=== PATIENT | female | born 1930 ===

== ENCOUNTER 2017-12-10 23:27 | Emergency (ER) | payer OTHER ==
[2017-12-10 23:53] VITALS: RESP 18; TEMP 98.3; O2SAT 98
[2017-12-10] MEDS ORDERED: DiphenhydrAMINE 50 mg/ml Inj IVP STA (23:59)
--- NOTE | 2017-12-11 00:01 | ED PDOC ---
HPI: Allergic Reaction Time Seen by Provider: 12/10/17 23:49 Chief Complaint (Nursing): Allergic Reaction History Per: Patient, Family (Yohan (great grand daughter)) Additional Complaint(s): As per her great granddaughter pt. has been having a constant worsening rash throughout her entire body and face. As per family she is currently visiting from [place] and has been here for 2 months. Denies fever, chest pain, SOB, palpitations, headache, visual changes. Of note, pt. does have a hx of HTN and takes irbesartan/HCTZ in the AM. Past Medical History Reviewed: Historical Data, Nursing Documentation, Vital Signs Vital Signs: Last Vital Signs Temp 98.3 F 12/10/17 23:49 Pulse 92 H 12/10/17 23:49 Resp 18 12/10/17 23:49 BP 225/78 H 12/10/17 23:49 Pulse Ox 98 12/10/17 23:49 - Medical History PMH: HTN Denies: Chronic Kidney Disease - Family History Family History: States: No Known Family Hx - Home Medications Home Medications: Ambulatory Orders Medication Instructions Recorded DiphenhydrAMINE [Benadryl] 1 - 2 cap PO Q6 PRN #30 cap 12/11/17 Methylprednisolone [Medrol Dose 4 mg PO DAILY #21 mg 12/11/17 Pack (21 tabs)] - Allergies Allergies/Adverse Reactions: Allergies Allergy/AdvReac Type Severity Reaction Status Date / Time No Known Allergies Allergy Verified 12/10/17 23:59 Review of Systems ROS Statement: Except As Marked, All Systems Reviewed And Found Negative Skin: Positive for: Rash Physical Exam - Physical Exam Appears: Positive for: Well, Non-toxic, No Acute Distress Skin: Positive for: Normal Color, Warm, Rash (scattered erythematous patches without vesicles, central clearing, or sclaing on b/l malar area, b/l arms, and upper chest) ENT: Positive for: Normal ENT Inspection Neck: Positive for: Normal, Painless ROM Cardiovascular/Chest: Positive for: Regular Rate, Rhythm Respiratory: Positive for: CNT, Normal Breath Sounds Neurologic/Psych: Positive for: Alert, Oriented. Negative for: Aphasia, Facial Droop - Laboratory Results Result Diagrams: 12/11/17 00:42 12/11/17 00:42 - ECG ECG: Positive for: Interpreted By Me ECG Rhythm: Positive for: Sinus Rhythm. Negative for: ST/T Changes Rate: 77 O2 Sat by Pulse Oximetry: 98 - Progress ED Course And Treament: Labs ordered. Benadryl 25mg IV, solu-medrol 125mg IV, pepcid 20mg IV ordered. 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 reports feeling much better. Offers no complaints at this time. Pt.'s family at bedside and note that rash has improved. Patient and family informed of BUN/Cr and instructed to f/u with [facility] for further evaluation. They report no hx of kidney disease. Disposition - Clinical Impression Clinical Impression: Allergic reaction - Patient ED Disposition Is Patient to be Admitted: No - Disposition Referrals: [facility] [Outside] Disposition: Routine/Home Disposition Time: 01:49 Condition: IMPROVED Prescriptions: DiphenhydrAMINE [Benadryl] 1 - 2 cap PO Q6 PRN #30 cap PRN Reason: itching or rash Methylprednisolone [Medrol Dose Pack (21 tabs)] 4 mg PO DAILY #21 mg Instructions: Skin Rash (DC) Forms: [email or web address] (Arabic) Print Language: PASHTO
[2017-12-11] MEDS ORDERED: DiphenhydrAMINE 50 mg/ml Inj ONE (00:06)
[2017-12-11 00:43] VITALS: BP 150/88
[2017-12-11 00:46] LABS: BASO % 0.5 % (0.0-2.0); EOS # 0.1 K/uL (0.0-0.7); EOS % 1.7 % (0.0-4.0); HEMOGLOBIN 11.3 g/dL (12.0-16.0); LYMPH % 37.8 % (20.0-40.0); MEAN CORPUSCULAR HEMOGLOBIN 30.6 pg (27.0-31.0); MEAN PLATELET VOLUME 8.8 fl (7.2-11.7); MONO # 0.7 K/uL (0.0-0.8); MONO % 12.3 % (0.0-10.0); NEUT # 2.5 K/uL (1.8-7.0); NEUT % 47.7 % (50.0-75.0); NRBC % 0.1 % (0.0-0.0); RBC 3.71 Mil/uL (3.80-5.20); WHITE BLOOD COUNT 5.3 K/uL (4.8-10.8)
[2017-12-11 01:09] LABS: ALB/GLOB RATIO 1.2 (1.0-2.1); CALCIUM 8.6 mg/dL (8.4-10.2)
[2017-12-11 01:47] VITALS: PULSE 77
--- NOTE | 2017-12-11 19:07 | CARD ---
APPROVED REPORT EKG Measurement Heart [id number] <Conclusion> Normal sinus rhythm Possible Left atrial enlargement RSR' or QR pattern in V1 suggests right ventricular conduction delay Borderline ECG
== END 2017-12-11 02:50 | disposition home or self-care (01) ==
LOC: H.ER 23:27
DX: T78.40XA Allergy, unspecified, initial encounter (principal); I10 Essential (primary) hypertension
CPT/HCPCS: 80053; 85025; 93005; 96374; 96375; 99283; J1200; J2930

== ENCOUNTER 2017-12-31 14:30 | Emergency (ER) | payer OTHER, SELFPAY ==
[2017-12-31 14:41] VITALS: TEMP 96
--- NOTE | 2017-12-31 15:04 | ED PDOC ---
HPI: Hypertension/Hypotension Time Seen by Provider: 12/31/17 15:01 Chief Complaint (Nursing): Dizziness/Lightheaded History Per: Family Onset/Duration Of Symptoms: Days Current Symptoms Are (Timing): Still Present Associated Symptoms: denies: Chest Pain, Dyspnea, Dizziness, Headache Additional Complaint(s): Family checked BP today and found to be elevated. H/o HTN on meds compliant daily. Denies chest pain, dizziness, headache or focal weakness. denies SOB. C/ o itchy rash on arms bilat. No swelling of tongue or difficulty swallowing Past Medical History Vital Signs: Last Vital Signs Temp 96 F L 12/31/17 14:37 Pulse 77 12/31/17 14:37 Resp 16 12/31/17 14:37 BP 250/87 H 12/31/17 14:37 Pulse Ox 100 12/31/17 14:37 - Medical History PMH: HTN Denies: Chronic Kidney Disease - Family History Family History: States: Unknown Family Hx - Home Medications Home Medications: Ambulatory Orders Medication Instructions Recorded DiphenhydrAMINE [Benadryl] 1 - 2 cap PO Q6 PRN #30 cap 12/11/17 Methylprednisolone [Medrol Dose 4 mg PO DAILY #21 mg 12/11/17 Pack (21 tabs)] - Allergies Allergies/Adverse Reactions: Allergies Allergy/AdvReac Type Severity Reaction Status Date / Time No Known Allergies Allergy Verified 12/31/17 14:34 Review of Systems ROS Statement: Except As Marked, All Systems Reviewed And Found Negative Skin: Positive for: Rash Physical Exam - Reviewed Nursing Documentation Reviewed: Yes Vital Signs Reviewed: Yes - Physical Exam Appears: Positive for: Non-toxic, No Acute Distress Head Exam: Positive for: ATRAUMATIC, NORMAL INSPECTION, NORMOCEPHALIC Skin: Positive for: Warm, Rash (Erythemetous rash forearms bilat. Also with periorbital erythema. No swelling or edema) Eye Exam: Positive for: EOMI, Normal appearance, PERRL ENT: Positive for: Normal ENT Inspection Neck: Positive for: Normal, Painless ROM Cardiovascular/Chest: Positive for: Regular Rate, Rhythm Respiratory: Positive for: CNT, Normal Breath Sounds Gastrointestinal/Abdominal: Positive for: Normal Exam, Bowel Sounds, Soft Back: Positive for: Normal Inspection Extremity: Positive for: Normal ROM Neurologic/Psych: Positive for: Alert, Oriented - ECG O2 Sat by Pulse Oximetry: 100 Disposition - Disposition
--- NOTE | 2017-12-31 15:39 | ED PDOC ---
- ECG ECG: Positive for: Interpreted By Me, Viewed By Me ECG Rhythm: Positive for: Normal QRS, Normal ST Segment, Sinus Rhythm O2 Sat by Pulse Oximetry: 100 Pulse Ox Interpretation: Normal - Progress ED Course And Treament: 1538: Took over care from Dr. Garland. Fu on BP. Has no symptoms except rash on arm that is itchy. Catapress given. 1700: Stable. AAOx3. Pain free. Rash on arms for 1 year. Taking benadryl and prednisolone 4mg. Pt. bp improved 160s/78. Fu with pcp/clinic. Continue meds for bp at home. Stope prednisolone low dose. Will give high dose prednisone for 5 days. Disposition Counseled Patient/Family Regarding: Studies Performed, Diagnosis, Need For Followup, Rx Given - Clinical Impression Clinical Impression: Hypertension, Dermatitis - POA Present On Arrival: None - Disposition Referrals: [facility] [Outside] - 01/03/18 Disposition: Routine/Home Disposition Time: 17:01 Condition: STABLE Additional Instructions: Return if not better in 3 days. Prescriptions: predniSONE [predniSONE Tab] 20 mg PO BID 5 Days tab Instructions: High Blood Pressure (DC), Dermatitis Print Language: KAZAKH
[2017-12-31 16:25] VITALS: RESP 18
[2017-12-31 19:44] VITALS: BP 135/69; PULSE 71; O2SAT 98
--- NOTE | 2018-01-01 15:00 | CARD ---
APPROVED REPORT EKG Measurement Heart [id number] <Conclusion> Normal sinus rhythm Normal ECG
== END 2017-12-31 17:50 | disposition home or self-care (01) ==
LOC: H.ER 14:30
DX: I10 Essential (primary) hypertension (principal); L30.9 Dermatitis, unspecified

== ENCOUNTER 2018-01-07 12:14 | Emergency (ER) | payer SELFPAY ==
[2018-01-07 12:26] VITALS: RESP 18; TEMP 98.4; O2SAT 98
--- NOTE | 2018-01-07 14:37 | ED PDOC ---
HPI: Skin/Bite Injury Time Seen by Provider: 01/07/18 12:59 Chief Complaint (Nursing): Abdominal Pain History Per: Family (this 87 yo female is brought to the ER because of persistent itchy rash since September when she came to visit form [place]. She is due to return in the 2 weeks. She was seen in this ER 2 times previosuly with similar complaints and was discharged. Along with her complaints are poorly controlled BP, abdominal discomfort and sore throat. These complaints are not new. She did not take her BP (Irbesartan/HCTZ 300mg/25 which she has from [place] today). She had normal labs at her visit here 1-2 weeks ago. She was sent home with prednisone for the itchy rash. ) Past Medical History Reviewed: Historical Data, Nursing Documentation, Vital Signs Vital Signs: Last Vital Signs Temp 98.4 F 01/07/18 12:20 Pulse 78 01/07/18 14:02 Resp 18 01/07/18 12:20 BP 185/96 H 01/07/18 14:02 Pulse Ox 98 01/07/18 12:20 - Medical History PMH: HTN Denies: Chronic Kidney Disease - Surgical History Surgical History: No Surg Hx - Family History Family History: States: Unknown Family Hx - Living Arrangements Living Arrangements: With Family - Social History Current smoker - smoking cessation education provided: No - Home Medications Home Medications: Ambulatory Orders Medication Instructions Recorded DiphenhydrAMINE [Benadryl] 1 - 2 cap PO Q6 PRN #30 cap 12/11/17 Methylprednisolone [Medrol Dose 4 mg PO DAILY #21 mg 12/11/17 Pack (21 tabs)] predniSONE [predniSONE Tab] 20 mg PO BID 5 Days tab 12/31/17 Triamcinolone/Emollient Cmb#86 1 apful TP BID #1 cream..g. 01/07/18 [Dermasorb Ta 0.1% Complete Kit] - Allergies Allergies/Adverse Reactions: Allergies Allergy/AdvReac Type Severity Reaction Status Date / Time No Known Allergies Allergy Verified 12/31/17 14:34 Review of Systems ROS Statement: Except As Marked, All Systems Reviewed And Found Negative Skin: Positive for: Rash (diffuse macules with hyperkerototic surface in the arms, exposed areas of the chest. None in the abdomen, back, legs, or covered parts of the chest.) Physical Exam - Reviewed Nursing Documentation Reviewed: Yes Vital Signs Reviewed: Yes - Physical Exam Appears: Positive for: Well, Non-toxic, No Acute Distress Head Exam: Positive for: ATRAUMATIC, NORMAL INSPECTION, NORMOCEPHALIC Skin: Positive for: Normal Color, Warm, Rash (diffuse macules with hyperkerototic surface in the arms, exposed areas of the chest. None in the abdomen, back, legs, or covered parts of the chest.) Eye Exam: Positive for: Normal appearance ENT: Positive for: Normal ENT Inspection Neck: Positive for: Normal Cardiovascular/Chest: Positive for: Regular Rate, Rhythm Respiratory: Positive for: CNT, Normal Breath Sounds Gastrointestinal/Abdominal: Positive for: Normal Exam, Bowel Sounds, Soft. Negative for: Tenderness Back: Positive for: Normal Inspection Extremity: Positive for: Normal ROM Neurologic/Psych: Positive for: Alert, Oriented - ECG O2 Sat by Pulse Oximetry: 98 Disposition - Clinical Impression Clinical Impression: Dermatitis, Hypertension - Patient ED Disposition Is Patient to be Admitted: No Doctor Will See Patient In The: Office Counseled Patient/Family Regarding: Diagnosis, Need For Followup, Rx Given - Disposition Referrals: Go Alvares MD [Medical Doctor] - Disposition: Routine/Home Disposition Time: 14:39 Condition: STABLE Prescriptions: Triamcinolone/Emollient Cmb#86 [Dermasorb Ta 0.1% Complete Kit] 1 apful TP BID # 1 cream..g. Instructions: Eczema (Atopic Dermatitis), High Blood Pressure (DC) Print Language: MALAWIAN - POA Present On Arrival: None
[2018-01-07 15:36] VITALS: BP 176/90; PULSE 77
== END 2018-01-07 15:18 | disposition home or self-care (01) ==
LOC: H.ER 12:14
DX: L30.9 Dermatitis, unspecified (principal); I10 Essential (primary) hypertension